=== PATIENT | female | born 1980 | race Caucasian/White ===

== ENCOUNTER → 2018-09-12 08:24 | Outpatient (CLI) | payer OTHER, SELFPAY ==
--- NOTE | 2018-09-12 08:27 | US_ITS ---
STUDY: ABDOMINAL ULTRASOUND - RIGHT UPPER QUADRANT REASON FOR VISIT: Female, 38 years old. Right upper quadrant pain x3 weeks TECHNIQUE: Ultrasound evaluation of the right upper quadrant was performed with real-time and static martines-scale imaging. TECHNICAL QUALITY: Adequate. COMPARISON: None. FINDINGS: Liver: The liver measures 19.2 cm. There is normal echogenicity of the liver. The bile ducts are within normal limits. There is hepatic color flow. The direction of portal flow is hepatopetal. There is no demonstrated mass lesion. Gallbladder: Normal distended gallbladder. The gallbladder wall measures 2.8 mm. There is a positive sonographic Cisneros's sign. There is no pericholecystic fluid. There is a solitary echogenic gallstone within the gallbladder. Common Bile Duct (C.B.D.): The common bile duct measures 5.4 mm. Pancreas: Normal size of the head, body and tail of the pancreas. There is normal echogenicity of the pancreas. There is no demonstrated pancreatic mass or cyst. Right Kidney: Normal size of the right kidney. The right kidney measures 11.5 x 5.9 x 4.6 cm. Normal renal cortex. The right cortex measures 1.1 cm. There is no demonstrated renal mass or cyst and there is a nonobstructing 6 mm stone.. There is no right hydronephrosis. US/Gallbladder IMPRESSION: Cholelithiasis with small polyp and positive Cisneros sign noted by the grinder operator automatic. However, there is no wall thickening or pericholecystic fluid present. Findings are equivocal for acute gallbladder disease, consider HIDA scan for further evaluation Fatty liver, no discrete lesion Nonobstructing right nephrolithiasis Electronically Signed: Daniel Brown MD at 12:15 EDT , Service support ,
== END ==
PROVIDERS: Family Provider Family Medicine; PCP Family Medicine; Referring Provider Family Medicine; Visit Provider Family Medicine
DX: K80.20 Calculus of gallbladder without cholecystitis without obstruction (principal); K76.0 Fatty (change of) liver, not elsewhere classified; N20.0 Calculus of kidney; R10.11 Right upper quadrant pain; R11.0 Nausea; M54.6 Pain in thoracic spine
CPT/HCPCS: 76705

== ENCOUNTER → 2018-10-05 07:23 | Outpatient (CLI) | payer OTHER, SELFPAY ==
[2018-09-27 07:44] VITALS: BMI 46.7
--- NOTE | 2018-10-05 07:26 | CT_ITS ---
STUDY: CT ABDOMEN AND PELVIS WITHOUT CONTRAST REASON FOR EXAM: Female, 38 years old. Right flank pain. History of right renal calculus. RADIATION DOSAGE (If Supplied By Facility): CTDIvol = ( 23.49 ) mGy, DLP = ( 1285.43 ) mGycm TECHNIQUE: Transaxial images were obtained from the dome of the diaphragm to the symphysis pubis without oral contrast, and without intravenous contrast. Sagittal and coronal images were reconstructed. Individualized dose optimization techniques were used for this CT. COMPARISON: None. FINDINGS: The visualized lung bases are unremarkable. The visualized portions of the heart are within normal limits. There is decreased attenuation of the liver consistent with steatosis. There is a solitary gallstone. This measures 3 cm x 2 cm. Normal spleen. Normal pancreas. Normal bilateral adrenal glands. Normal right kidney. Normal left kidney. There is a small hiatal hernia. Normal small intestine. Normal colon. The appendix is visualized and appears normal. Normal abdominal aorta. Normal inferior vena cava. Normal retroperitoneum. Normal urinary bladder. Small benign-appearing bilateral inguinal lymph nodes. Normal abdominal wall. Normal osseous structures. CT/Abdomen/Pelvis without Cont IMPRESSION: Large solitary gallstone. Fatty infiltration of the liver. Electronically Signed: Radames Lebron, at 13:41 EDT , Service support ,
== END ==
PROVIDERS: Family Provider Family Medicine; PCP Family Medicine; Referring Provider Urology; Visit Provider Urology
DX: N20.0 Calculus of kidney (principal); K80.20 Calculus of gallbladder without cholecystitis without obstruction; K76.0 Fatty (change of) liver, not elsewhere classified; R10.9 Unspecified abdominal pain
CPT/HCPCS: 74176

== ENCOUNTER 2018-10-29 05:23 | Day surgery (SDC) | payer OTHER, SELFPAY ==
[2018-09-27 07:44] VITALS: BMI 46.7
--- NOTE | 2018-09-29 08:18 | HP_ITS ---
Intake Vital Signs 09/27/18 Body Mass Index (BMI) 46.7 09/27/18 Height 5 ft 4 in 09/27/18 Weight: 252 lb 09/27/18 Body Mass Index (BMI) 43.2 09/27/18 Blood Pressure 138/93 H 09/27/18 Blood Pressure Location Rt brachial 09/27/18 Respiratory Rate 18 Intake Visit Reasons: Lap Alexus Consult [facility] 09/12 Chief Complaint: Tachycardia/SOB/CP/Leukocytosis District Customs Director Required: No Is patient in pain?: No Allergies No Known Allergies Allergy (Verified 09/27/18 07:43) Medications Metoprolol Succinate 25 mg PO DAILY 02/11/17 [History Confirmed 09/27/18] terbinafine HCl 250 mg tablet 250 mg PO DAILY 09/27/18 [History Confirmed 09/27/18] [facility] Medical History (Updated 09/27/18 @ 08:15 by Tunde Harvey MD) Cholelithiasis with chronic cholecystitis (Chronic) Cholelithiasis (Acute) HTN (hypertension) (Chronic) Surgical History S/P section (Acute) S/P tubal ligation (Acute) Family History Father Heart disease Hypertension Mother Hypertension Social History (Updated 09/27/18 @ 08:18 by Tunde Harvey MD) Smoking Status: Never smoker alcohol intake: never HPI HPI HPI: ANANTH CHIRINOS is a 38 F who presents to the office today for HPI HPI Surgical H&P: Yes HPI: ANANTH CHIRINOS is a 38 F who presents to the office today for surgical consultation regarding episode of severe epigastric pain and right flank pain with ultrasound evidence of gallstone and possible polyp. The patient is referred by her primary care physician Dr. Farris and Caitlin Vicente NP-C for surgical consultation and a written compromise surgical consult will be returned to them. 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 In July while on a diet she lost 20 pounds in weight. On August 24 she had an episode of severe epigastric pain and right flank pain. Fortunately was rather transient. On September 12, 2018 at the [facility] gallbladder ultrasound was obtained. The gallbladder wall was 2.8 mm. It was not distended. Solitary gallstone was noted. The common bile duct measured 5.4 mm. There was also felt to be a 6 mm kidney stone. There was also concerned about a small polyp in the gallbladder. Consideration for HIDA scan if appropriate was offered. The patient demonstrates to me some liver function tests that she had performed demonstrating a very slight increase in the AST and ALT. The ALT was 68 and AST was 45. Total bilirubin alkaline phosphatase were normal. The patient has had 2 previous C-sections. She has had a more recent tubal ligation. She has not had any particular difficulty with those procedures. No history of DVT. She currently claims suggest does not quite feel normal but she is not in acute pain. Exam Const General: cooperative, healthy appearing, comfortable, no acute distress Nutritional Appearance: obese morbidly obese Orientation: alert, awake HENMT Head: normal to inspection Eyes General: appearance normal, both eyes and all related structures Chest Other: No flank percussion tenderness Resp Effort & Inspection: normal respiratory effort Auscultation: clear to auscultation bilaterally Cardio Rhythm: regular rhythm GI Other: Soft, overweight, transverse incision at the inferior portion of the umbilicus with keloid, no focal mass, normal bowel sounds, Musc Cervical Spine: normal cervical lordosis Skin General: no rashes or lesions noted Neuro Cognition: normal cognition Extrem General: no calf tenderness bilaterally Psych Affect: normal affect Assessment & Plan Problems 1. Calculus of gallbladder with chronic cholecystitis without obstruction K80.10 Plan I do not suspect that the patient has acute cholecystitis at this time. The mild elevation of her ALT and AST likely secondary to steatosis. I do recommend a laparoscopic cholecystectomy with selective cholangiography and I have discussed the technique, benefit, risks, alternatives. The patient is interested in future additional weight loss and I would encourage that. She has had an opportunity to ask and have questions answered. We will schedule and proceed at her discretion. I very much appreciate the kind opportunity of continue to assist with her surgical care cc: Dr. Farris and Caitlin Vicente NP-James Harvey M.D., F.A.C.S. Coding Level of Care Code 93604 Diagnoses Calculus of gallbladder with chronic cholecystitis without obstruction K80.10 ??Cholelithiasis location: gallbladder ??Biliary obstruction: without biliary obstruction
--- NOTE | 2018-10-26 08:30 | EKG12_ITS ---
Test Reason : PRE-OP Blood Pressure : / mmHG Vent. Rate : 066 BPM Atrial Rate : 066 BPM P-R Int : 170 ms QRS Dur : 090 ms QT Int : 412 ms P-R-T Axes : 037 -13 016 degrees QTc Int : 431 ms Normal sinus rhythm Minimal voltage criteria for LVH, may be normal variant Borderline ECG Confirmed by REYES ARIAS ([id number]), construction project assistant JORDAN SOLORIO ([id number]) on 10/29/2018 2:30:01 PM Referred By: Tunde Harvey Confirmed By:REYES ARIAS
[2018-10-26 08:43] LABS: Hematocrit 41.8 % (37-47); Hemoglobin 13.1 g/dL (12.0-15.0); Mean Corp Hgb Conc 31.3 g/dL (32-36); Mean Corpuscular Hgb 28.2 pg (27.0-32.0); Mean Corpuscular Volume 90.1 fL (81-99); Mean Platelet Vol. 10.3 fl (6.2-12.0); Platelet Count 267 K/mm3 (150-450); RBC Distribution Width CV 13.6 % (11.6-14.6); RBC Distribution Width SD 44.6 fl (35.1-43.9); Red Blood Count 4.64 M/mm3 (4.2-5.4); White Blood Count 8.8 K/mm3 (4.4-11.0)
[2018-10-26 09:14] LABS: BUN 11 mg/dL (7-18); BUN/Creat Ratio 15.9 RATIO (10-20); Calcium,Total 8.9 mg/dL (8.5-10.1); Chloride 105 mmol/L (98-107); Creatinine, Serum 0.69 mg/dL (0.55-1.02); EST Glomerular Filtration Rate 100 mL/min (>60); Est Glom Filt Rate - Afr Amer 121 mL/min (>60); Glucose 96 mg/dL (74-106); Potassium 4.2 mmol/L (3.5-5.1); Sodium Level 137 mmol/L (136-145)
[2018-10-26 09:15] LABS: Anion Gap 4 (5-15)
[2018-10-29 05:47] VITALS: BP 132/86; PULSE 68; RESP 16; TEMP 36.7; O2SAT 100; BMI 42.7
[2018-10-29] MEDS: Lactated Ringers 1,000 ML 15 ML IV (06:03)
--- NOTE | 2018-10-29 06:44 | HP.PCM_ITS ---
Problem List (1) Cholelithiasis with chronic cholecystitis Status: Chronic Qualifiers: Cholelithiasis location: gallbladder Biliary obstruction: without biliary obstruction Qualified Code(s): K80.10 - Calculus of gallbladder with chronic cholecystitis without obstruction History and Physical Date of Admission: 10/29/18 MR#:[id number]:[id number] Name: ANANTH CHIRINOS Rep #: [id number] : 1980 Provider: Tunde ramirez MD Age/Sex: 38/F Location: [facility] Status: Signed Intake Vital Signs 09/27/18 Body Mass Index (BMI) 46.7 09/27/18 Height 5 ft 4 in 09/27/18 Weight: 252 lb 09/27/18 Body Mass Index (BMI) 43.2 09/27/18 Blood Pressure 138/93 H 09/27/18 Blood Pressure Location Rt brachial 09/27/18 Respiratory Rate 18 Intake Visit Reasons: Lap Alexus Consult [facility] 09/12 Chief Complaint: Tachycardia/SOB/CP/Leukocytosis Anesthesiologist Physician Required: No Is patient in pain?: No Allergies No Known Allergies Allergy (Verified 09/27/18 07:43) Medications Metoprolol Succinate 25 mg PO DAILY 02/11/17 [History Confirmed 09/27/18] terbinafine HCl 250 mg tablet 250 mg PO DAILY 09/27/18 [History Confirmed 09/27/18] [facility] Medical History (Updated 09/27/18 @ 08:15 by Tunde Harvey MD) Cholelithiasis with chronic cholecystitis (Chronic) Cholelithiasis (Acute) HTN (hypertension) (Chronic) Surgical History S/P section (Acute) S/P tubal ligation (Acute) Family History Father Heart disease Hypertension Mother Hypertension Social History (Updated 09/27/18 @ 08:18 by Tunde Harvey MD) Smoking Status: Never smoker alcohol intake: never HPI HPI HPI: ANANTH CHIRINOS is a 38 F who presents to the office today for HPI HPI Surgical H&P: Yes HPI: ANANTH CHIRINOS is a 38 F who presents to the office today for surgical consultation regarding episode of severe epigastric pain and right flank pain with ultrasound evidence of gallstone and possible polyp. The patient is referred by her primary care physician Dr. Farris and Caitlin Vicente NP-C for surgical consultation and a written compromise surgical consult will be returned to them. 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 In July while on a diet she lost 20 pounds in weight. On August 24 she had an episode of severe epigastric pain and right flank pain. Fortunately was rather transient. On September 12, 2018 at the [facility] gallbladder ultrasound was obtained. The gallbladder wall was 2.8 mm. It was not distended. Solitary gallstone was noted. The common bile duct measured 5.4 mm. There was also felt to be a 6 mm kidney stone. There was also concerned about a small polyp in the gallbladder. Consideration for HIDA scan if appropriate was offered. The patient demonstrates to me some liver function tests that she had performed demonstrating a very slight increase in the AST and ALT. The ALT was 68 and AST was 45. Total bilirubin alkaline phosphatase were normal. The patient has had 2 previous C-sections. She has had a more recent tubal ligation. She has not had any particular difficulty with those procedures. No history of DVT. She currently claims suggest does not quite feel normal but she is not in acute pain. Exam Const General: cooperative, healthy appearing, comfortable, no acute distress Nutritional Appearance: obese morbidly obese Orientation: alert, awake [facility] Head: normal to inspection Eyes General: appearance normal, both eyes and all related structures Chest Other: No flank percussion tenderness Resp Effort & Inspection: normal respiratory effort Auscultation: clear to auscultation bilaterally Cardio Rhythm: regular rhythm GI Other: Soft, overweight, transverse incision at the inferior portion of the umbilicus with keloid, no focal mass, normal bowel sounds, Musc Cervical Spine: normal cervical lordosis Skin General: no rashes or lesions noted Neuro Cognition: normal cognition Extrem General: no calf tenderness bilaterally Psych Affect: normal affect Assessment & Plan Problems 1. Calculus of gallbladder with chronic cholecystitis without obstruction K80.10 Plan I do not suspect that the patient has acute cholecystitis at this time. The mild elevation of her ALT and AST likely secondary to steatosis. I do recommend a laparoscopic cholecystectomy with selective cholangiography and I have discussed the technique, benefit, risks, alternatives. The patient is interested in future additional weight loss and I would encourage that. She has had an opportunity to ask and have questions answered. We will schedule and proceed at her discretion. I very much appreciate the kind opportunity of continue to assist with her surgical care cc: Dr. Farris and Caitlin Vicente NP-C Tunde Harvey M.D., F.A.C.S. Coding Level of Care Code 91774 Diagnoses Calculus of gallbladder with chronic cholecystitis without obstruction K80.10 ??Cholelithiasis location: gallbladder ??Biliary obstruction: without biliary obstruction I reviewed the patient's history and physical with her today. She still complains of intermittent right flank pain and upper back pain particularly aggravated by eating nuts. She denies fever or chills or sweats or nausea or vomiting. Chest is clear cardiac exam is regular. Abdomen soft nontender. There is no changes in additional physical exam. We have discussed plan to proceed with laparoscopic cholecystectomy with selective cholangiography. She is aware of the technique, benefits, risks, alternatives. She has had an opportunity to ask and have questions answered. We will proceed as noted. Tunde Harvey M.D., F.A.C.S.
--- NOTE | 2018-10-29 07:08 | DCINST_ITS ---
Discharge Diet: Light diet - advance as tolerated - if you have questions about your diet instructions, please talk to you doctor. Discharge Activity: May Not Drive - for 3-5 days or while taking narcotic pain medicine. May shower in (days): 1 Lifting Restrictions: 10 pounds Call your doctor if your incision/area has: Continuous Slow Oozing, Sudden Increased Bleeding, Increased Pain/ Swelling, Increased Redness, Foul Smelling Discharge Call your doctor if you observe: Fever of 101 or Higher Suture Line Care: Avoid Pulling/Pushing, Avoid Pinching/Bending Additional Dressing/Incision Instructions:: Change or remove dressing in 4 days. Leave steri-strips in place for 1 week. Allergies/Adverse Reactions: Allergies vicodin Adverse Reaction (Mild, Uncoded 10/29/18 05:58) not feeling good,extremed fatigue Medications to take at Discharge Metoprolol Succinate 25 mg PO QHS 02/11/17 terbinafine HCl 250 mg tablet 250 mg PO DAILY 09/27/18 Primary Care Physician: Carlos Farris MD [Primary Care Provider] - Test Results: Test results from this visit will be discussed in further detail at your follow- up appointment, if applicable. Please Follow Up With: Tunde Harvey MD - [phone] When: Call to make an appointment to be seen in about 10 days.
[2018-10-29] MEDS: Cefazolin 2 GM in 0.9% Normal Saline 100 ML IV (07:10)
--- NOTE | 2018-10-29 07:15 | RAD_ITS ---
STUDY: INTRAOPERATIVE CHOLANGIOGRAM. REASON FOR EXAM: Female, 38 years old. Laparoscopic cholecystectomy. FLUOROSCOPY TIME (if supplied): (0:07) minutes/seconds TECHNIQUE: An intraoperative cholangiogram was performed by the surgeon. Imaging was submitted. COMPARISON: None. FINDINGS: The common bile duct is not dilated. No intraluminal filling defect is seen. There is free flow of contrast into the duodenum. RAD/Cholangiogram/ O R,Initial IMPRESSION: Unremarkable intraoperative cholangiogram. Electronically Signed: Radames Lebron, at 9:02 EDT , Service support ,
--- NOTE | 2018-10-29 07:15 | GALL_PTH ---
PATIENT: ANANTH CHIRINOS LOC: [facility] U#:[id number] AGE/SX: 38/F ROOM: RE10/29/[address]: Dr. Tunde Harvey MD : 1980 BED: DIS: 10/29/2018 SPEC #: [id number] RECD: 10/29/18 09:39 STATUS: SCOTTIE BA #: [id number] CONNOR: 10/29/18 07:[address]: Tunde Harvey DEPT: SURGICAL PATHOLOGY RECD BY: Kiki Sanchez ENTERED: 10/29/18 11:15 SP TYPE: ELADIO LYNNE DR: Dr. Carlos Farris MD Tissues: Gallbladder, NOS Procedures: Surgery Specimen Level III HEADER OPERATION: Laparoscopic, cholecystectomy with IOC PRE-OP DIAGNOSIS: Cholelithiasis with chronic cholecystitis TISSUE SUBMITTED: Gallbladder MICROSCOPIC DIAGNOSIS Gallbladder, cholecystectomy: Cholesterolosis, chronic cholecystitis and cholelithiasis. AM:martha 10/30/18 MICROSCOPIC DESCRIPTION Slides are reviewed. GROSS DESCRIPTION Received is one container labeled with the patient's name and designated gallbladder. The specimen consists of a gallbladder measuring 10 cm in length and up to 3 cm in diameter. The external surface is pink-redman, smooth and glistening for the most part. Focally it is granular, hemorrhagic and contains cautery artifact. The gallbladder contains hemorrhagic yellow mucoid bile and one ovoid brownish-black stone impacted at the fundus measuring 3.3 x 2.5 x 2 cm. The mucosa is bile-stained and without any mass lesions. The gallbladder wall measures up to 0.2 cm in thickness. Pie Filler sections from the gallbladder and the cystic duct are submitted in one cassette. / SJ:martha 10/29/18 TC:3 CPT: 71316
[2018-10-29] MEDS: Bupivacaine Mpf 0.5% 30 ML VIAL (08:00)
[2018-10-29] MEDS: Lactated Ringers 1,000 ML 100 ML IV (08:20)
--- NOTE | 2018-10-29 08:44 | OP.PCM_ITS ---
Problem List (1) Cholelithiasis with chronic cholecystitis Status: Chronic Qualifiers: Cholelithiasis location: gallbladder Biliary obstruction: without biliary obstruction Qualified Code(s): K80.10 - Calculus of gallbladder with chronic cholecystitis without obstruction Report of Operation Date of Procedure: 10/29/18 Pre-Operative Diagnosis: Chronic cholecystitis cholelithiasis possible gallbladder polyp Post-Operative Diagnosis: Same Surgery/Procedure Performed:: Laparoscopic cholecystectomy with cholangiography Description of Surgical Findings:: Timeout and informed consent was obtained. 38-year-old female was taken the operative placement table underwent general endotracheal intubation anesthesia. The abdomen was sterilely prepped and draped. 0.5% Marcaine was used as a local anesthetic. Skin sites were were pre-anesthetized. Throughout the procedure total 30. A supraumbilical vertical incision was created holding sutures of 0 Vicryl placed varies needle inserted saline drop test performed the abdomen was insufflated with CO2 to a pressure of 12 mmHg pressure. Suzan trocar inserted. 10 lap scope inserted. No concern trocar injuries. There were adhesions of omentum from the umbilicus inferiorly. The trocar entered superior to that. There was no evidence of any bowel involvement. There were multiple adhesions of omentum to the gallbladder. The gallbladder wall appeared to be of normal thickness. 5 mm trochars were placed in the epigastric mid abdomen the right up per quadrant. The gallbladder was carefully distracted and blunt dissection was used to dissect the omentum free. Because of the vascularity of the omentum multiple hemo-lock clips were used for hemostasis. The patient is noted to be morbidly obese. Dissection at the infundibular area was very tedious due to the amount of fibrofatty tissue. Tediously and carefully the cystic duct cystic artery were dissected. The cystic artery was clearly identified and it was clipped proximally and distally with a hemo-lock clip prior to transecting it. The critical view was achieved. The cystic duct clearly identified. A hemo- lock clip was placed on the cystic duct incision in the cystic duct clench Luis F catheter was inserted to a 14 [place] Angiocath and fluoroscopically control claims grams were obtained demonstrating normal ductal anatomy and free flow in the small bowel. The cholangiogram catheter was removed to Hem-o-kayden clips were placed on the cystic duct stump prior to transecting it. The gallbladder was tediously dissected free from the liver bed. There was no spillage. The gallbladder was completely removed. The gallbladder was immediately placed in a retrieval bag. The right upper quadrant was irrigated and aspirated free of excess fluid. A piece of fibrillar was placed in the liver bed to assure hemostasis. The patient had a significant amount of yellow change in the liver consistent with steatosis. Hemostasis was intact. The gallbladder was exited at the umbilicus. A large stone was encountered. The fascia had to be enlarged for gallbladder removal. The remaining trochars removed under visualization. The abdomen was allowed to deflate of the CO2. The fascia at the umbilicus was approximated with a combination of an interrupted [id number] 0 Vicryl in a running 0 Vicryl. Skin edges were approximated with interrupted 4-0 Monocryl subdermal stitches. Steri-Strips and Telfa and OpSite dressings were applied. Sponge and instrument and needle counts were reported to the surgeon to be correct. Blood loss was minimal. The patient was taken to the recovery area in satisfactory condition without apparent complication. Specimen gallbladder. Drains none. Blood loss minimal. Tunde Harvey M.D., F.A.C.S. Type of Anesthesia:: General Anesthesiologist: Olivia Bey
[2018-10-29 09:02] VITALS: BP 132/86; BP 98/58; PULSE 16; RESP 16; TEMP 36.5; O2SAT 84
[2018-10-29 09:15] VITALS: BP 132/86; BP 95/65; PULSE 54; RESP 18; O2SAT 96
[2018-10-29 09:30] VITALS: BP 103/76; BP 132/86; PULSE 51; RESP 16; O2SAT 98
[2018-10-29 09:41] VITALS: BP 132/86; BP 99/70; PULSE 55; RESP 18; TEMP 36.9; O2SAT 95
[2018-10-29] MEDS: Ibuprofen 600 MG Tablet PO (10:19)
[2018-10-29 10:35] VITALS: BP 118/72; BP 132/86; PULSE 55; RESP 16; TEMP 36.3; O2SAT 94
== END 2018-10-29 10:48 | disposition home or self-care (01) ==
LOC: SDC 05:23 → AC 05:24
PROVIDERS: Family Provider Family Medicine; PCP Family Medicine; Referring Provider Surgery; Visit Provider Surgery
PROC: (CPT 47610; principal; 2018-10-29 06:55)
DX: K80.10 Calculus of gallbladder with chronic cholecystitis without obstruction (principal); K66.0 Peritoneal adhesions (postprocedural) (postinfection); I10 Essential (primary) hypertension; E66.01 Morbid (severe) obesity due to excess calories; Z68.41 Body mass index [BMI] 40.0-44.9, adult; Z79.899 Other long term (current) drug therapy
CPT/HCPCS: 00790; 47563; 36415; 74300; 76000; 80048; 85027; 88304; 93005; J7120; J2405